=== PATIENT | male | born 1990 | race Caucasian/White ===

== ENCOUNTER 2016-05-14 07:34 | Emergency (ER) | payer MEDICAID ==
[2016-05-14] MEDS ORDERED: IPRATROPIUM/ALBUTEROL 3 ML NEB INH STA (08:45)
[2016-05-14] MEDS ORDERED: DEXAMETHASONE 10 MG/ML VIAL PO STA (08:46)
[2016-05-14] MEDS ORDERED: DEXAMETHASONE 10 MG/ML VIAL ONE (08:50)
[2016-05-14] MEDS ORDERED: IPRATROPIUM/ALBUTEROL 3 ML NEB INH ONE (08:53)
== END 2016-05-14 09:32 | disposition home or self-care (01) ==
DX: H66.003 Acute suppurative otitis media without spontaneous rupture of ear drum, bilateral (principal); J45.21 Mild intermittent asthma with (acute) exacerbation; Z87.891 Personal history of nicotine dependence
CPT/HCPCS: 71020; 94640; 94664; 99283; 99284; J7620

== ENCOUNTER 2016-05-14 20:52 | Emergency (ER) | payer MEDICAID ==
[2016-05-14] MEDS ORDERED: IBUPROFEN 600 MG TABLET PO STA (21:24)
[2016-05-14] MEDS ORDERED: HYDROcod/ACETAM 5/325 MG TABLET PO STA (21:25)
[2016-05-14] MEDS ORDERED: HYDROcod/ACETAM 5/325 MG TABLET ONE (21:26)
[2016-05-14] MEDS ORDERED: IBUPROFEN 600 MG TABLET PO ONE (21:27)
== END 2016-05-14 22:13 | disposition home or self-care (01) ==
DX: M54.5 Low back pain (principal); J45.909 Unspecified asthma, uncomplicated; Z87.891 Personal history of nicotine dependence
CPT/HCPCS: 81001; 99283; A9270

== ENCOUNTER 2016-07-22 14:02 | Emergency (ER) | payer MEDICAID ==
[2016-07-22 15:14] LABS: BILIRUBIN,URINE NEGATIVE (NEGATIVE); PH,URINE 6.5 PH (5.0-7.5)
[2016-07-22 15:22] LABS: UA CHARGE (STRIP ONLY) YES; UR CULTURE IF IND NOT INDICATED
--- NOTE | 2016-07-22 15:22 | ED Physician Documentation ---
PD HPI MHE - Stated complaint Stated Complaint: MHE - Chief complaint Chief Complaint: MHE - Additional information Additional information: 26-year-old male with past medical history of bipolar disorder, not currently on medications, here with suicidal ideation. He feels that his seasonal depression is getting worse, and for the last day he has felt very suicidal. He denies any plan. He has had suicidal ideation in the past without any attempts. He denies auditory and visual hallucinations, and homicidal ideation. Review of Systems Ten Systems: 10 systems reviewed and negative Constitutional: denies: Fever, Chills Cardiac: denies: Chest pain / pressure Respiratory: denies: Dyspnea Psychiatric: reports: Depressed, Suicidal. denies: Homicidal PD PAST MEDICAL HISTORY - Past Medical History Cardiovascular: None Respiratory: Asthma Neuro: None Endocrine/Autoimmune: None GI: None : None HEENT: None Psych: Anxiety, Bipolar disorder Musculoskeletal: None Derm: None - Past Surgical History Past Surgical History: No - Present Medications Home Medications: Ambulatory Orders Medication Instructions Recorded Confirmed No Known Home Medications [No 07/22/16 07/22/16 Known Home Medications] - Allergies Allergies/Adverse Reactions: Allergies Allergy/AdvReac Type Severity Reaction Status Date / Time No Known Drug Allergies Allergy Verified 07/22/16 14:27 - Social History Does the pt smoke?: No Smoking Status: Former smoker Does the pt drink ETOH?: No Does the pt have substance abuse?: Yes - Immunizations Immunizations are current?: Yes Immunizations: TDAP current <10years - POLST Patient has POLST: No PD ED PE NORMAL - Vitals Vital signs reviewed: Yes - General General: Alert and oriented X 3, No acute distress - HEENT HEENT: PERRL - Neck Neck: Supple, no meningeal sign - Cardiac Cardiac: RRR, No murmur - Respiratory Respiratory: Clear bilaterally - Abdomen Abdomen: Normal bowel sounds, Soft, Non tender, Non distended - Derm Derm: Warm and dry - Extremities Extremities: No deformity - Neuro Neuro: Alert and oriented X 3 - Psych Psych: Other (Flat affect, depressed mood, suicidal, not homicidal. Not responding to internal stimuli) Results - Vitals Vitals: Vital Signs - 24 hr 07/22/16 07/22/16 14:24 16:48 Temperature 36.6 C 36.5 C Heart Rate 98 72 Respiratory 16 Rate Blood Pressure 132/75 H 129/82 H O2 Saturation 99 98 Oxygen O2 Source Room air - Labs Labs: Laboratory Tests 07/22/16 07/22/16 07/22/16 14:40 14:40 14:50 Urine Color YELLOW Urine Clarity CLEAR Urine pH 6.5 Ur Specific Normal 1.010 Urine Protein TRACE Urine Glucose (UA) NEGATIVE Urine Ketones NEGATIVE Urine Occult Blood NEGATIVE Urine Nitrite NEGATIVE Urine Bilirubin NEGATIVE Urine Urobilinogen 0.2 (NORMAL) Ur Leukocyte Esterase NEGATIVE Ur Microscopic Review NOT INDICATED Urine Culture Comments NOT INDICATED Salicylates < 6.0 Urine Opiates Screen NEGATIVE Ur Oxycodone Screen NEGATIVE Urine Methadone Screen NEGATIVE Ur Propoxyphene Screen NEGATIVE Acetaminophen < 10 L Ur Barbiturates Screen NEGATIVE Ur Tricyclics Screen NEGATIVE Ur Phencyclidine Scrn NEGATIVE Ur Amphetamine Screen NEGATIVE U Methamphetamines Scrn NEGATIVE U Benzodiazepines Scrn NEGATIVE Urine Cocaine Screen NEGATIVE U Cannabinoids Screen POSITIVE H Ethyl Alcohol < 5.0 PD MEDICAL DECISION MAKING - ED course Complexity details: reviewed results, re-evaluated patient, considered differential, d/w patient ED course: 26 old male with past medical history of bipolar disorder here with suicidal ideation. Differential diagnosis includes but is not limited to substance abuse versus infectious process versus suicidal ideation versus depression. Patient's tox screen is notable only for cannabinoids. There is no social media marketing analyst here upon patient's arrival. He was able to discuss his feelings with the crisis line , and they are going to call him every day until Monday, when he has an emergency appointment scheduled. He told me that he never actually acted on his suicidal feelings, there is feelings that he has that he is able to ignore. He is amenable to discharge and feels comfortable with the plan to talk to the suicide line, And see a counselor first thing Monday morning. He has reassured me that he will not kill himself. He is aware and amenable to discharge at this time with followup. I feel comfortable sending him home, as he does not strike me as an actual suicide risk. This document was made in part using voice recognition software. While efforts are made to proofread this document, sound alike and grammatical errors may occur. Departure - Departure Disposition: Home, Self Care Clinical Impression: Suicidal ideation Depression Qualifiers: Qualified Code(s): F32.9 - Major depressive disorder, single episode, unspecified Condition: Stable Instructions: ED Depression Follow-Up: your, counselor [Other] - Within 3 Days Duke Tyler MD [Primary Care Provider] - Within 1 week Comments: Please be sure to followup at the mental health appointment you may. Return to the ER for any worsening suicidal or homicidal ideation.Your blood pressure was elevated today on check in to the emergency department. This does not mean that you have hypertension, it is a common phenomenon to check into the emergency department and have elevated blood pressure. I recommend that you see your primary care physician within the week to have it rechecked when you're feeling better. Discharge Date/Time: 07/22/16 16:56
[2016-07-22 15:25] LABS: SALICYLATE < 6.0 mg/dL
[2016-07-22 15:37] LABS: ACETAMINOPHEN < 10 ug/mL (10-30)
[2016-07-22 16:49] VITALS: BP 129/82
== END 2016-07-22 16:56 | disposition home or self-care (01) ==
LOC: ED 14:02
DX: F32.9 Major depressive disorder, single episode, unspecified (principal); R45.851 Suicidal ideations; F31.9 Bipolar disorder, unspecified; F41.9 Anxiety disorder, unspecified; R03.0 Elevated blood-pressure reading, without diagnosis of hypertension; Z87.891 Personal history of nicotine dependence
CPT/HCPCS: 36415; 80306; 80307; 80320; 80329; 81001; 81003; 87086; 99283; 99285

== ENCOUNTER 2017-10-29 12:09 | Emergency (ER) | payer MEDICAID ==
--- NOTE | 2017-10-29 12:41 | ED Physician Documentation ---
PD HPI LOWER EXT INJURY - Stated complaint Stated Complaint: L ANKLE INJ - Chief complaint Chief Complaint: Ext Problem - History obtained from History obtained from: Patient - History of Present Illness PD HPI LOW EXT INJURY LOCATION: Left, Ankle Type of injury: Fall (Was coming down stairs while carrying a large box and missed the last step and inverted the left ankle. He heard a pop and a snap. He is able to walk and bear weight. No other injuries. He declines pain medications on initial evaluation.) Timing - onset: Today Review of Systems Constitutional: reports: Reviewed and negative Cardiac: reports: Reviewed and negative Respiratory: reports: Reviewed and negative PD PAST MEDICAL HISTORY - Past Medical History Past Medical History: Yes Cardiovascular: None Respiratory: Asthma Endocrine/Autoimmune: None GI: None : None HEENT: None Psych: Anxiety, Bipolar disorder Musculoskeletal: None Derm: None - Past Surgical History Past Surgical History: No - Present Medications Home Medications: Ambulatory Orders Medication Instructions Recorded Confirmed Albuterol Sulf [Ventolin Hfa 10/29/17 Inhaler] - Allergies Allergies/Adverse Reactions: Allergies Allergy/AdvReac Type Severity Reaction Status Date / Time No Known Drug Allergies Allergy Verified 10/29/17 12:16 - Social History Does the pt smoke?: No Smoking Status: Never smoker Does the pt drink ETOH?: No Does the pt have substance abuse?: Yes Substance Use and Type: Marijuana - Immunizations Immunizations are current?: Yes Immunizations: TDAP current <10years - POLST Patient has POLST: No PD ED PE NORMAL - Vitals Vital signs reviewed: Yes - General General: Alert and oriented X 3, No acute distress - Neck Neck: Supple, no meningeal sign, No bony TTP - Extremities Extremities: Other (Left leg is without proximal fibular tenderness. He is quite tender over the lateral malleolus, not over the medial there is no foot tenderness. There is significant swelling over the lateral malleolus. Normal neurovascular function in the foot.) - Neuro Neuro: Alert and oriented X 3, Normal speech Results - Vitals Vitals: Vital Signs - 24 hr 10/29/17 12:13 Temperature 37.5 C Heart Rate 68 Respiratory 20 Rate Blood Pressure 137/75 H O2 Saturation 97 Oxygen O2 Source Room air - Rads (name of study) 3v L ankle Radiology: EMP read contemporaneously (STS no frx) PD MEDICAL DECISION MAKING - Sepsis Event Vital Signs: Vital Signs - 24 hr 10/29/17 12:13 Temperature 37.5 C Heart Rate 68 Respiratory 20 Rate Blood Pressure 137/75 H O2 Saturation 97 Oxygen O2 Source Room air Departure - Departure Disposition: 01 Home, Self Care Clinical Impression: Left ankle sprain Qualifiers: Encounter type: initial encounter Involved ligament of ankle: anterior talofibular ligament Qualified Code(s): S93.492A - Sprain of other ligament of left ankle, initial encounter Condition: Good Instructions: ED Sprain Ankle W X Ray Comments: Recheck with your doctor in a week, return if worse. Your blood pressure was elevated today on check into the emergency department. This does not mean that you have hypertension, it is a common phenomenon to come to the emergency department and have elevated blood pressure. I recommend that you see your primary care physician within the week to have it rechecked when you are feeling better.
--- NOTE | 2017-10-29 13:09 | XRAY Report ---
Procedure Date: 10/29/2017 Accession Number: [id number] / [id number] Procedure: XR - Ankle 3 View LT CPT Code: FULL RESULT: EXAM: LEFT ANKLE RADIOGRAPHY EXAM DATE: 10/29/2017 12:58 PM. CLINICAL HISTORY: Pain after injury (missed the last step coming down stairs carrying a large box) COMPARISON: None. TECHNIQUE: 3 views. FINDINGS: Bones: Normal. No fractures or bone lesions. Joints: Normal. No effusion. No subluxations. The ankle mortise is normally aligned. Soft Tissues: Mild lateral soft tissue swelling. IMPRESSION: No acute osseous abnormality. RADIA
[2017-10-29 13:21] VITALS: BP 133/81
== END 2017-10-29 13:20 | disposition home or self-care (01) ==
LOC: ED 12:09
DX: S93.492A Sprain of other ligament of left ankle, initial encounter (principal); W10.9XXA Fall (on) (from) unspecified stairs and steps, initial encounter; X50.1XXA Overexertion from prolonged static or awkward postures, initial encounter; Y93.01 Activity, walking, marching and hiking; R03.0 Elevated blood-pressure reading, without diagnosis of hypertension
CPT/HCPCS: 99283

== ENCOUNTER 2019-01-27 01:59 | Emergency (ER) | payer MEDICAID ==
[2019-01-27] MEDS ORDERED: LORazepam 0.5 MG TABLET PO STA (02:18)
--- NOTE | 2019-01-27 02:18 | ED Physician Documentation ---
History of Present Illness - Stated complaint Stated Complaint: ANXIETY - Chief complaint Chief Complaint: MHE - History obtained from History obtained from: Patient - History of Present Illness Timing: How many days ago (4) Improved by: no ameliorating factors Worsened by: no specific inciting nor exacerbating factors - Additonal information Additional information: c/o generalized anxiety resulting in insomnia x 4 days. He was recently seen by PMD for this and was offered rx for antidepressant (can't recall which one, but thinks it might have been Zoloft); patient says he declined this rx because he had been on zoloft in the past and had distressing withdrawal symptoms when it was discontinued. He says PMD is in process of referring patient to a psychiatrist, but patient presents at this time due to feeling he cannot handle the anxiety any longer. He denies SI/HI, denies AH/VH. Review of Systems Neurologic: reports: Reviewed and negative Psychiatric: reports: Anxiety, Insomnia. denies: Depressed, Suicidal, Homicidal, Hallucinations, Delusions PD PAST MEDICAL HISTORY - Past Medical History Past Medical History: Yes Cardiovascular: None Respiratory: Asthma Endocrine/Autoimmune: None GI: None : None HEENT: None Psych: Anxiety, Bipolar disorder Musculoskeletal: None Derm: None - Past Surgical History Past Surgical History: No - Present Medications Home Medications: Ambulatory Orders Medication Instructions Recorded Confirmed Albuterol Sulf [Ventolin Hfa 10/29/17 Inhaler] LORazepam [Lorazepam] 0.5 - 1 mg PO TID PRN #20 tablet 01/27/19 - Allergies Allergies/Adverse Reactions: Allergies Allergy/AdvReac Type Severity Reaction Status Date / Time No Known Drug Allergies Allergy Verified 01/27/19 02:05 - Social History Does the pt smoke?: No Smoking Status: Never smoker Does the pt drink ETOH?: No Does the pt have substance abuse?: No - Immunizations Immunizations are current?: Yes Immunizations: TDAP current <10years - POLST Patient has POLST: No PD ED PE NORMAL - Vitals Vital signs reviewed: Yes - General General: Alert and oriented X 3, No acute distress, Well developed/nourished - HEENT HEENT: PERRL, EOMI - Cardiac Cardiac: RRR, No murmur - Respiratory Respiratory: No respiratory distress, Clear bilaterally - Neuro Neuro: Alert and oriented X 3 - Psych Psych: Normal mood, Normal affect Results - Vitals Vitals: Vital Signs - 24 hr 01/27/19 01/27/19 02:01 02:37 Temperature 36.4 C L 36.5 C Heart Rate 80 72 Respiratory 18 18 Rate Blood Pressure 143/100 H 118/72 O2 Saturation 98 100 Oxygen O2 Source Room air PD MEDICAL DECISION MAKING - ED course Complexity details: reviewed old records, considered differential, d/w patient ED course: patient is pleasant and cooperative, requesting medication for anxiety for short-term until he can follow up with his PMD or, ideally, be seen by psychiatry (he says he knows the referral process will likely take weeks). He does not request any specific medication, dose, nor amount/length of course of rx. We discussed options and my recommendation is lorazepam, which he says he has had in the past with good effect (anxiety control). Departure - Departure Disposition: 01 Home, Self Care Clinical Impression: Anxiety Condition: Good Instructions: ED Panic Attack Follow-Up: FRIDA BHATT MD [Primary Care Provider] - Prescriptions: LORazepam [Lorazepam] 0.5 - 1 mg PO TID PRN #20 tablet PRN Reason: Anxiety Discharge Date/Time: 01/27/19 02:37
[2019-01-27 02:38] VITALS: BP 118/72
== END 2019-01-27 02:37 | disposition home or self-care (01) ==
LOC: ED 01:59
DX: F41.9 Anxiety disorder, unspecified (principal)
CPT/HCPCS: 99282; 99283; A9270

== ENCOUNTER 2019-02-19 13:59 | Emergency (ER) | payer MEDICAID ==
[2019-02-19 14:05] VITALS: BP 150/103
--- NOTE | 2019-02-19 15:45 | ED Physician Documentation ---
History of Present Illness - Stated complaint Stated Complaint: MOUTH PX - Chief complaint Chief Complaint: Heent - Additonal information Additional information: I did not see this patient. I signed up to see him as he was being called back from the waiting room, but he was not in the waiting room and appeared to have eloped prior to being seen. PD PAST MEDICAL HISTORY - Past Medical History Cardiovascular: None Respiratory: Asthma Endocrine/Autoimmune: None GI: None : None HEENT: None Psych: Anxiety, Bipolar disorder Musculoskeletal: None Derm: None - Past Surgical History Past Surgical History: No - Present Medications Home Medications: Ambulatory Orders Medication Instructions Recorded Confirmed Albuterol Sulf [Ventolin Hfa 10/29/17 Inhaler] LORazepam [Lorazepam] 0.5 - 1 mg PO TID PRN #20 tablet 01/27/19 - Allergies Allergies/Adverse Reactions: Allergies Allergy/AdvReac Type Severity Reaction Status Date / Time No Known Drug Allergies Allergy Verified 01/27/19 02:05 - Social History Does the pt smoke?: No Smoking Status: Never smoker Does the pt drink ETOH?: No Does the pt have substance abuse?: No - Immunizations Immunizations are current?: Yes Immunizations: TDAP current <10years - POLST Patient has POLST: No Results - Vitals Vitals: Oxygen O2 Source Room air Departure - Departure Disposition: ED Elope Discharge Date/Time: 02/19/19 17:14
== END 2019-02-19 17:14 | disposition left against medical advice (07) ==
LOC: ED 13:59
DX: Z53.21 Procedure and treatment not carried out due to patient leaving prior to being seen by health care provider (principal)

== ENCOUNTER 2019-05-15 11:03 | Emergency (ER) | payer SELFPAY ==
[2019-05-15 11:26] VITALS: BP 134/88
[2019-05-15 11:50] LABS: RAPID STREP SCREEN Negative (Negative)
--- NOTE | 2019-05-15 12:06 | ED Physician Documentation ---
PD HPI HEENT - Stated complaint Stated Complaint: FEVER/ SORE THROAT - Chief complaint Chief Complaint: Heent - History obtained from History obtained from: Patient (10 days of waxing and waning sore throat, left worse than right associated with fevers. No cough or runny nose. He has a history of recurrent tonsillitis and peritonsillar abscesses. No recent travel) Review of Systems Ten Systems: 10 systems reviewed and negative Constitutional: reports: Fever, Chills, Fatigue Ears: reports: Reviewed and negative Nose: denies: Rhinorrhea / runny nose, Congestion Throat: reports: Sore throat Respiratory: denies: Dyspnea, Cough PD PAST MEDICAL HISTORY - Past Medical History Cardiovascular: None Respiratory: Asthma Endocrine/Autoimmune: None GI: None : None HEENT: None Psych: Anxiety, Bipolar disorder Musculoskeletal: None Derm: None - Past Surgical History Past Surgical History: No - Present Medications Home Medications: Ambulatory Orders Medication Instructions Recorded Confirmed Albuterol Sulf [Ventolin Hfa 10/29/17 Inhaler] LORazepam [Lorazepam] 0.5 - 1 mg PO TID PRN #20 tablet 01/27/19 Penicillin V Potassium 500 mg PO Q6HR #40 tablet 05/15/19 - Allergies Allergies/Adverse Reactions: Allergies Allergy/AdvReac Type Severity Reaction Status Date / Time No Known Drug Allergies Allergy Verified 05/15/19 11:25 - Social History Does the pt smoke?: No Smoking Status: Never smoker Does the pt drink ETOH?: No Does the pt have substance abuse?: No - Immunizations Immunizations are current?: Yes Immunizations: TDAP current <10years - POLST Patient has POLST: No PD ED PE NORMAL - Vitals Vital signs reviewed: Yes - General General: Alert and oriented X 3, No acute distress - HEENT HEENT: Other (Tonsillitis, left larger than right but no uvular deviation. No obvious abscess at this juncture.) - Neck Neck: Supple, no meningeal sign, No bony TTP - Neuro Neuro: Alert and oriented X 3, Normal speech Results - Vitals Vitals: Vital Signs - 24 hr 05/15/19 11:22 Temperature 36.9 C Heart Rate 90 Respiratory 17 Rate Blood Pressure 134/88 H O2 Saturation 96 Oxygen O2 Source Room air - Labs Labs: Laboratory Tests 05/15/19 11:28 Group A Strep Rapid Negative PD MEDICAL DECISION MAKING - ED course ED course: 3 out of 4 Centor criteria with typical tonsillitis. Departure - Departure Disposition: 01 Home, Self Care Clinical Impression: Tonsillitis Condition: Good Record reviewed to determine appropriate education?: Yes Instructions: ED Peritonsillar Infec Abx No I andD Prescriptions: Penicillin V Potassium 500 mg PO Q6HR #40 tablet Comments: [facility] [place] Call your doctor to arrange a follow-up appointment, make the next available appointment. In the interim, return anytime if worse or if new symptoms develop. Forms: Activity restrictions
== END 2019-05-15 12:21 | disposition home or self-care (01) ==
LOC: ED 11:03
DX: J03.90 Acute tonsillitis, unspecified (principal)
CPT/HCPCS: 87070; 87430; 99283

== ENCOUNTER 2021-02-13 11:32 | Emergency (ER) | payer MEDICAID ==
[2021-02-13 11:48] VITALS: BP 136/74
--- NOTE | 2021-02-13 12:06 | ED Physician Documentation ---
History of Present Illness - Stated complaint Stated Complaint: N/V/D - Chief complaint Chief Complaint: General - Additonal information Additional information: 30-year-old male presents emergency department requesting a note to return to [facility]. He began having vomiting and diarrhea after eating fish sticks that were left out on the counter for too long. He reports that on Monday and morning afternoon he began having uncontrollable vomiting and diarrhea. Her that resolved by night and over the last 36 hours he is eating and drinking well with no complaints. No bloody output no fevers. No complaints of abdominal pain. He works as a manager community development at [employer] and they require a note if you have missed 3 or more days of work Denies any pertinent past medical history. Takes no prescribed medications. Review of Systems Constitutional: denies: Fever, Chills Eyes: reports: Reviewed and negative Ears: reports: Reviewed and negative Nose: reports: Reviewed and negative Throat: reports: Reviewed and negative Cardiac: reports: Reviewed and negative Respiratory: reports: Reviewed and negative GI: reports: Nausea, Vomiting, Diarrhea. denies: Abdominal Pain : reports: Reviewed and negative Skin: reports: Reviewed and negative Musculoskeletal: reports: Reviewed and negative PD PAST MEDICAL HISTORY - Past Medical History Cardiovascular: None Respiratory: Asthma Endocrine/Autoimmune: None GI: None : None HEENT: None Psych: Anxiety, Bipolar disorder Musculoskeletal: None Derm: None - Past Surgical History Past Surgical History: No - Present Medications Home Medications: Ambulatory Orders Medication Instructions Recorded Confirmed Albuterol Sulf [Ventolin Hfa 10/29/17 Inhaler] LORazepam [Lorazepam] 0.5 - 1 mg PO TID PRN #20 tablet 01/27/19 Penicillin V Potassium 500 mg PO Q6HR #40 tablet 05/15/19 - Allergies Allergies/Adverse Reactions: Allergies Allergy/AdvReac Type Severity Reaction Status Date / Time No Known Drug Allergies Allergy Verified 02/13/21 11:48 - Social History Does the pt smoke?: No Smoking Status: Never smoker Does the pt drink ETOH?: No Does the pt have substance abuse?: No - Immunizations Immunizations are current?: Yes Immunizations: TDAP current <10years - POLST Patient has POLST: No PD ED PE NORMAL - General General: Alert and oriented X 3, No acute distress - HEENT HEENT: PERRL - Neck Neck: Supple, no meningeal sign - Cardiac Cardiac: RRR, No murmur - Respiratory Respiratory: Clear bilaterally - Abdomen Abdomen: Normal bowel sounds, Soft, Non tender, Non distended - Back Back: No CVA TTP, No spinal TTP - Derm Derm: Warm and dry - Extremities Extremities: No deformity - Neuro Neuro: Alert and oriented X 3 Eye Opening: Spontaneous Motor: Obeys Commands Results - Vitals Vitals: Vital Signs - 24 hr 02/13/21 11:45 Temperature 36.3 C L Heart Rate 87 Respiratory 15 Rate Blood Pressure 136/74 H O2 Saturation 99 Oxygen O2 Source Room air PD MEDICAL DECISION MAKING - ED course Complexity details: considered differential, d/w patient ED course: 30-year-old male presents emergency department requesting a note to return to work. He unfortunately had vomiting and diarrhea which required him to miss 3 days of work. None now for 36 hours. Clinically his exam is benign with no vital sign abnormality or tenderness on abdominal exam. No vomiting or diarrhea for 36 hours. Patient is medically cleared to return for work a note was provided. Departure - Departure Disposition: 01 Home, Self Care Clinical Impression: Encounter to obtain excuse from work, Vomiting and diarrhea Condition: Stable Record reviewed to determine appropriate education?: Yes Comments: Paul it has been more than 24 hours since she had vomiting and diarrhea. He has not had any fevers. You are medically cleared to return to work.
== END 2021-02-13 12:31 | disposition home or self-care (01) ==
LOC: ED 11:32
DX: R11.10 Vomiting, unspecified (principal); R19.7 Diarrhea, unspecified; F41.9 Anxiety disorder, unspecified; F31.9 Bipolar disorder, unspecified
CPT/HCPCS: 99282

== ENCOUNTER 2021-03-03 17:03 | Emergency (ER) | payer MEDICAID ==
[2021-03-03] MEDS ORDERED: IBUPROFEN 800 MG TABLET PO STA (17:39)
[2021-03-03] MEDS ORDERED: methocarbamoL 500 MG TABLET PO STA (17:39)
--- NOTE | 2021-03-03 18:00 | ED Physician Documentation ---
PD HPI BACK PAIN - Stated complaint Stated Complaint: FALL, BACK PX - Chief complaint Chief Complaint: Trauma Ch/Bk - History obtained from History obtained from: Patient - History of Present Illness Timing - onset: Today Timing - duration: Minutes (45) Pain level max: 7 Pain level now: 6 Location: Lower, Right, Left Quality: Pain, Spasm Associated symptoms: No: Fever, Weakness, Numbness, Incontinent of urine, Unable to urinate, Hematuria, Incontinent of stool Improves with: Rest Worsened by: Movement Contributing factors: Trauma. No: Lifting, Twisting, Anticoagulated, Cancer, IVDA, Out of meds Similar symptoms before: Has not had sx before Recently seen: Not recently seen - Additional information Additional information: Patient is a 30-year-old male who states that he was walking across a deck today which was slippery and wet when he fell backwards landing flat on his back. Complains of back pain that is worse with movement and better with rest. Occurred about 45 minutes prior to arrival. Has not taken anything for pain. No loss of bowel or bladder control. No numbness or tingling. No head injury. No neck pain. Review of Systems Constitutional: denies: Fever, Chills Respiratory: denies: Cough GI: denies: Nausea, Vomiting, Diarrhea : denies: Dysuria, Incontinent Skin: denies: Rash Musculoskeletal: denies: Neck pain Neurologic: denies: Focal weakness, Numbness, Headache PD PAST MEDICAL HISTORY - Past Medical History Cardiovascular: None Respiratory: Asthma Endocrine/Autoimmune: None GI: None : None HEENT: None Psych: Anxiety, Bipolar disorder Musculoskeletal: None Derm: None - Past Surgical History Past Surgical History: No - Present Medications Home Medications: Ambulatory Orders Medication Instructions Recorded Confirmed Cyclobenzaprine [Flexeril] 10 mg PO TID PRN #20 tablet 03/03/21 HYDROcod/ACETAM 5/325 [Drewsey 5/325] 1 - 2 ea PO Q6H PRN #14 tablet 03/03/21 Ibuprofen [Motrin] 800 mg PO Q8H PRN #30 tablet 03/03/21 - Allergies Allergies/Adverse Reactions: Allergies Allergy/AdvReac Type Severity Reaction Status Date / Time No Known Drug Allergies Allergy Verified 03/03/21 17:10 - Social History Does the pt smoke?: No Smoking Status: Never smoker Does the pt drink ETOH?: No Does the pt have substance abuse?: No - Immunizations Immunizations are current?: Yes Immunizations: TDAP current <10years - POLST Patient has POLST: No PD ED PE NORMAL - Vitals Vital signs reviewed: Yes - General General: Alert and oriented X 3, No acute distress, Well developed/nourished - HEENT HEENT: Atraumatic, Moist mucous membranes - Neck Neck: Supple, no meningeal sign, No bony TTP - Cardiac Cardiac: RRR - Respiratory Respiratory: No respiratory distress, Clear bilaterally - Abdomen Abdomen: Normal bowel sounds, Soft, Non tender, Non distended - Back Back: No spinal TTP (No midline tenderness to palpation or percussion. No step- off or deformity. Paraspinal spasm present bilateral lower lumbar.) - Derm Derm: Warm and dry - Extremities Extremities: No edema - Neuro Neuro: Alert and oriented X 3, No motor deficit, No sensory deficit, Other (Normal bilateral lower extremity patellar and ankle jerk reflexes. Normal great toe extension bilaterally. no saddle anesthesia) - Psych Psych: Normal mood, Normal affect Results - Vitals Vitals: Vital Signs - 24 hr 03/03/21 03/03/21 17:08 19:20 Temperature 36.2 C L Heart Rate 101 H 85 Respiratory 16 16 Rate Blood Pressure 146/95 H 140/86 H O2 Saturation 96 97 Oxygen O2 Source Room air - Rads (name of study) Lumbar spine x-ray Radiology: Final report received, EMP read contemporaneously, See rad report (No acute abnormality) PD MEDICAL DECISION MAKING - ED course Complexity details: reviewed results, re-evaluated patient, considered differential (No cauda equina, no spinal epidural abscess, no fracture, no aortic dissection or evidence of aneursym rupture), d/w patient ED course: 30-year-old male presents to the emergency department after a ground-level fall today. No acute findings on x-ray. Appears to be muscular spasm. Will place on pain medication muscle relaxants for home. Patient counseled regarding signs and symptoms for which I believe and urgent re-evaluation would be necessary. Patient with good understanding of and agreement to plan and is comfortable going home at this time This document was made in part using voice recognition software. While efforts are made to proofread this document, sound alike and grammatical errors may occur. Departure - Departure Disposition: Home, Self Care Clinical Impression: Back muscle spasm Condition: Good Instructions: ED Spasm Back No Trauma Follow-Up: your,doctor in 1 week [Other] Prescriptions: Cyclobenzaprine [Flexeril] 10 mg PO TID PRN #20 tablet PRN Reason: Spasms Ibuprofen [Motrin] 800 mg PO Q8H PRN #30 tablet PRN Reason: PAIN &/OR FEVER HYDROcod/ACETAM 5/325 [Drewsey 5/325] 1 - 2 ea PO Q6H PRN #14 tablet PRN Reason: Pain Comments: Please follow-up with your doctor for further care. Your prescriptions were sent to [facility] in [place]. Your x-ray does not show any acute abnormalities. Continue to gently stretch your back. I am prescribing a short course of narcotic pain medication for you. These are potentially dangerous and addictive medications that should be used carefully. These medications may constipate you. Take an [id number] stool softener (docusate) twice daily with plenty of water while taking these medications. If you go 24 hours without a bowel movement, take [id number] miralax, per package instructions. Do not drink or drive while taking these medications. If you received narcotic or sedating medications while in the emergency department, do not drive for 24 hours. Store this medication in a safe, secure place and out of reach of children. It is a violation of federal law to give or sell this medication to another person or to use in a manner other than prescribed. The ED will not refill narcotic prescriptions, including prescriptions lost or stolen. To dispose of unwanted medications: 1. [facility] at [address] in [place] has a medication drop box. They accept prescription medications (in pill form) Monday through Monday 9:00 a.m. to 5:00 p.m. 2. [facility] [employer] accepts prescription medications (in pill form only) for disposal year round. Call for more information. 3. Contact the [facility] for the next [facility] sponsored prescription drug collection event. , [phone], or [phone]; Discharge Date/Time: 03/03/21:21
--- NOTE | 2021-03-03 18:07 | XRAY Report ---
PROCEDURE: Lumbar Spine 2 View INDICATIONS: fall, back pain TECHNIQUE: 2 views of the lumbar spine were acquired. COMPARISON: None. FINDINGS: Bones: 5 [id number] vertebrae are present. There is normal bony alignment. No vertebral body compression fractures. No suspicious bony lesions. Soft tissues: Overlying bowel gas pattern is normal. No suspicious soft tissue calcifications. IMPRESSION: Lumbar spine without acute fracture or traumatic malalignment. Reviewed by: Vaibhav Diaz MD on 03/03/2021 6:06 PM [facility] Approved by: Vaibhav Diaz MD on 03/03/2021 6:06 PM [facility] Station ID: [id number]
[2021-03-03 19:21] VITALS: BP 140/86
== END 2021-03-03 19:21 | disposition home or self-care (01) ==
LOC: ED 17:03
DX: M62.830 Muscle spasm of back (principal); M54.50 Low back pain, unspecified; W01.0XXA Fall on same level from slipping, tripping and stumbling without subsequent striking against object, initial encounter; Y93.01 Activity, walking, marching and hiking; Y92.008 Other place in unspecified non-institutional (private) residence as the place of occurrence of the external cause
CPT/HCPCS: 72100; 99283; A9270

== ENCOUNTER 2021-03-16 10:08 | Emergency (ER) | payer MEDICAID ==
[2021-03-16 10:25] VITALS: BP 136/84
--- NOTE | 2021-03-16 11:03 | ED Physician Documentation ---
History of Present Illness - Stated complaint Stated Complaint: WORK CLEARANCE,BACK INJURY - Chief complaint Chief Complaint: Back Pain - History obtained from History obtained from: Patient - History of Present Illness Timing: How many weeks ago (2) - Additonal information Additional information: 30-year-old male sprained his back slipped on a deck 2 weeks ago went back to work 3 days later and when lifting a bag of garbage he had acute spasm in his back bring him to his knees. He feels that he has recovered completely he is able to stand up and bend over and touch his toes and feels he is ready to go back to work. Review of Systems Constitutional: denies: Fever Eyes: denies: Decreased vision Ears: denies: Ear pain Nose: denies: Congestion Throat: denies: Sore throat Respiratory: denies: Cough GI: denies: Abdominal Pain, Nausea, Vomiting, Constipation, Diarrhea : denies: Dysuria, Frequency Skin: denies: Rash Musculoskeletal: reports: Back pain (resolved). denies: Neck pain, Extremity pain PD PAST MEDICAL HISTORY - Past Medical History Past Medical History: Yes Cardiovascular: None Respiratory: Asthma Endocrine/Autoimmune: None GI: None : None HEENT: None Psych: Anxiety, Bipolar disorder Musculoskeletal: None Derm: None - Past Surgical History Past Surgical History: No - Present Medications Home Medications: Ambulatory Orders Medication Instructions Recorded Confirmed Cyclobenzaprine [Flexeril] 10 mg PO TID PRN #20 tablet 03/03/21 HYDROcod/ACETAM 5/325 [Eagle 5/325] 1 - 2 ea PO Q6H PRN #14 tablet 03/03/21 Ibuprofen [Motrin] 800 mg PO Q8H PRN #30 tablet 03/03/21 - Allergies Allergies/Adverse Reactions: Allergies Allergy/AdvReac Type Severity Reaction Status Date / Time No Known Drug Allergies Allergy Verified 03/03/21 17:10 - Social History Does the pt smoke?: No Smoking Status: Never smoker Does the pt drink ETOH?: No Does the pt have substance abuse?: No - Immunizations Immunizations are current?: Yes Immunizations: TDAP current <10years - POLST Patient has POLST: No PD ED PE NORMAL - Vitals Vital signs reviewed: Yes (hypertensive mild ) - General General: Alert and oriented X 3, No acute distress, Well developed/nourished - HEENT HEENT: Atraumatic, PERRL, EOMI - Neck Neck: Supple, no meningeal sign, No bony TTP - Respiratory Respiratory: No respiratory distress - Back Back: No CVA TTP, No spinal TTP - Derm Derm: Normal color, Warm and dry, No rash - Extremities Extremities: No deformity, No edema - Neuro Neuro: Alert and oriented X 3, scientific aide 2-12 intact, No motor deficit, No sensory deficit, Normal speech Eye Opening: Spontaneous Motor: Obeys Commands Verbal: Oriented GCS Score: 15 - Psych Psych: Normal mood, Normal affect Results - Vitals Vitals: Vital Signs - 24 hr 03/16/21 10:22 Temperature 36.6 C Heart Rate 88 Respiratory 15 Rate Blood Pressure 136/84 H O2 Saturation 100 Oxygen O2 Source Room air PD MEDICAL DECISION MAKING - ED course Complexity details: considered differential, d/w patient ED course: 30-year-old male strained his back 2 weeks ago appears to have recovered and he wants a note to go back to work I believe the patient will be able to go back to work unrestricted. Departure - Departure Disposition: 01 Home, Self Care Clinical Impression: Encounter for pre-employment low back evaluation screening Condition: Stable Instructions: ED Low Back Pain Injury Follow-Up: [facility] [Provider Group] Comments: Paul it looks like your back injury has resolved. Sudden jarring injuries to your back will sometimes have a delay in onset of symptoms and may take 1 to 2 weeks to recover. The recommendation is ice and stretch stretch before working and maintain hydration. Forms: Activity restrictions
== END 2021-03-16 11:08 | disposition home or self-care (01) ==
LOC: ED 10:08
DX: Z02.89 Encounter for other administrative examinations (principal); S39.012D Strain of muscle, fascia and tendon of lower back, subsequent encounter; W01.0XXD Fall on same level from slipping, tripping and stumbling without subsequent striking against object, subsequent encounter
CPT/HCPCS: 1040M; 99281; 99282

== ENCOUNTER 2021-08-16 09:32 | Emergency (ER) | payer MEDICAID, OTHER ==
[2021-08-16 09:45] VITALS: BP 101/52
[2021-08-16] MEDS ORDERED: CHERRY SYRUP 10 ML UDC PO ONE (10:07)
[2021-08-16] MEDS ORDERED: DEXAMETHASONE 10 MG/ML VIAL PO STA (10:07)
--- NOTE | 2021-08-16 10:11 | ED Physician Documentation ---
PD HPI HEENT - Stated complaint Stated Complaint: FACE LUMP/EYE PX - Chief complaint Chief Complaint: Heent - History obtained from History obtained from: Patient - History of Present Illness Timing - onset: How many days ago (4) Timing - duration: Days (4) Timing - details: Gradual onset, Still present Location: Other (left pre-auricular) Improves: Nothing Worsens: Other (palpation) Associated symptoms: Swollen nodes, Facial swelling, Other (eye irrirtation). No: Fever, Congestion, Rhinorrhea, Trismus, Unable to swallow, Headache, Cough Similar symptoms before: Diagnosis (ingrown hair) Recently seen: Not recently seen - Additional information Additional information: 31-year-old male has developed a swelling in front of his left ear that was tender and erythematous she felt that he had an ingrown hair there and this started about 4 days ago. He has begun to develop some irritation to his left eye with some swelling to the eyelid and erythema. He has had a number of ENT infections previously and has had to be in to see the ENT in [place] 3 times previously for I&D of his tonsils. Review of Systems Constitutional: denies: Fever Eyes: reports: Irritation. denies: Loss of vision, Decreased vision, Photophobia, Discharge Ears: denies: Ear pain Nose: denies: Rhinorrhea / runny nose, Congestion Throat: denies: Sore throat Respiratory: denies: Cough GI: denies: Vomiting Musculoskeletal: denies: Neck pain, Back pain, Extremity pain Neurologic: denies: Generalized weakness, Focal weakness, Numbness, Headache, Head injury, LOC PD PAST MEDICAL HISTORY - Past Medical History Past Medical History: Yes Cardiovascular: None Respiratory: Asthma Neuro: None Endocrine/Autoimmune: None GI: None : None HEENT: None Psych: Anxiety Musculoskeletal: None Derm: None - Past Surgical History Past Surgical History: No - Present Medications Home Medications: Ambulatory Orders Medication Instructions Recorded Confirmed Amox/Clav 875/125 [Augmentin] 1 each PO Q12H #20 tablet 08/16/21 - Allergies Allergies/Adverse Reactions: Allergies Allergy/AdvReac Type Severity Reaction Status Date / Time No Known Drug Allergies Allergy Verified 08/16/21 09:41 - Social History Does the pt smoke?: No Smoking Status: Never smoker Does the pt drink ETOH?: No Does the pt have substance abuse?: Yes Substance Use and Type: Marijuana - Immunizations Immunizations are current?: Yes Immunizations: TDAP current <10years - POLST Patient has POLST: No PD ED PE NORMAL - Vitals Vital signs reviewed: Yes (Normal) - General General: Alert and oriented X 3, Well developed/nourished, Other (31-year-old male with scleral injection to the left eye. ) - HEENT HEENT: Atraumatic, PERRL, EOMI, Other (Left TM is with minimal erythema the right TM is flush but with retained landmarks there is a 1 cm by half centimeter mass that is firm palpable in the preauricular auricular area consistent with an enlarged lymph node. The area is tender there is no fluctuance.) - Neck Neck: Supple, no meningeal sign, No bony TTP - Respiratory Respiratory: No respiratory distress - Derm Derm: Normal color, Warm and dry, No rash - Extremities Extremities: No deformity, No edema - Neuro Neuro: Alert and oriented X 3, interactive developer 2-12 intact, No motor deficit, No sensory deficit, Normal speech Eye Opening: Spontaneous Motor: Obeys Commands Verbal: Oriented GCS Score: 15 - Psych Psych: Normal mood, Normal affect Results - Vitals Vitals: Vital Signs - 24 hr 08/16/21 09:41 Temperature 36.8 C Heart Rate 95 Respiratory 16 Rate Blood Pressure 101/52 L O2 Saturation 96 Oxygen O2 Source Room air PD MEDICAL DECISION MAKING - ED course Complexity details: reviewed old records, reviewed results, re-evaluated patient, considered differential, d/w patient ED course: 31-year-old Fay Garnica with what appears to be a swollen preauricular lymph node has had a number of ENT infections previously. This does not look like it matches any specific process. I treated the patient here in the emergency department with dexamethasone to help shrink the lymph node and Aug mentin. I have asked patient to follow-up with ENT if he has if he has progression of his symptoms despite this treatment Departure - Departure Disposition: 01 Home, Self Care Clinical Impression: Acute lymphangitis of external cheek Condition: Stable Instructions: ED Lymphangitis Follow-Up: [facility] [Provider Group] [facility] [place] [Provider Group] Prescriptions: Amox/Clav 875/125 [Augmentin] 1 each PO Q12H #20 tablet Comments: Paul today it looks like you have an infection in the lymph node in front of your ear. This is a common place to get a lymph node inflamed in this year area usually drains the eye. I am expecting with the treatment we provided you today to have an improvement day by day. If you have a worsening of your condition despite the treatment we have started here a prompt follow-up with ear nose and throat is recommended. I have E scribed some Augmentin to [facility] in [place].
--- OUTSIDE RECORDS SUMMARY | 2021-08-16 10:12 | EXTERNAL MEDICAL SUMMARY RPT | Continuity of Care Document ---
:1990 Author Organization [facility] Address [address] [place] [address] Phone Care Team Providers Name Role Phone PA-C Unavailable Unavailable WASHER BLANKET Unavailable Unavailable Allergies No information. Encounters No information. Medications date description facility 20210701 penicillin v potassium All 20210701 penicillin v potassium All Problems date description facility 20210701 Total score? All 20210701 Tonsillitis All 20210701 Tobacco use and exposure All 20210701 Tobacco smoking status NHIS All 20210701 Alcohol use All 20210701 Acute tonsillitis, unspecified All 20210701 Never smoker All 20210701 Details of drug misuse behavior All Procedures date description facility 20210701 Med Administration (PO-SL-IN-MA) All 20210701 Dexamethasone Sodium Phosphate Inj 10mg /1mL All 20210701 Med Administration (PO-SL-IN-MA) All 20210701 Dexamethasone Sodium Phosphate Inj 10mg /1mL All Results No information. Vital Signs date measurement value source 20210701 weight_standard 195 lb 20210701 weight_metric 88.45 kg 20210701 temperature_standard 98.2 F 20210701 temperature_metric 36.78 C 20210701 respiration_rate 16 /min 20210701 height_standard 71 in 20210701 height_metric 180.34 cm 20210701 heart_rate 80 /min 20210701 BP_systolic 139 mm[Hg] 20210701 BP_diastolic 89 mm[Hg] 20210701 BMI 27.30 kg/m2 20210701 weight_standard 195 lb 20210701 weight_metric 88.45 kg 20210701 temperature_standard 98.2 F 20210701 temperature_metric 36.78 C 20210701 respiration_rate 16 /min 20210701 height_standard 71 in 20210701 height_metric 180.34 cm 20210701 heart_rate 80 /min 20210701 BP_systolic 139 mm[Hg] 20210701 BP_diastolic 89 mm[Hg] 20210701 BMI 27.30 kg/m2
== END 2021-08-16 10:25 | disposition home or self-care (01) ==
LOC: ED 09:32
DX: I89.1 Lymphangitis (principal)
CPT/HCPCS: 99282; 99283; A9270

== ENCOUNTER 2023-06-20 12:31 | Emergency (ER) | payer MEDICAID ==
[2023-06-20 12:47] VITALS: BP 140/84; O2SAT 98
--- NOTE | 2023-06-20 13:18 | ED Physician Documentation ---
History of Present Illness - Stated complaint Stated Complaint: MED REFIL - Chief complaint Chief Complaint: General - Additonal information Additional information: 33-year-old gentleman with longstanding mood disorder on sertraline 100 twice daily. He changed primary care and is unable to get refills. Took his last pill today. Here for medication refill no SI or HI. Calm cooperative pleasant no other concerns. Review of Systems Neurologic: reports: Reviewed and negative Psychiatric: denies: Depressed, Suicidal, Homicidal, Hallucinations, Delusions, Anxiety, Insomnia PD PAST MEDICAL HISTORY - Past Medical History Past Medical History: Yes Cardiovascular: None Respiratory: Asthma Neuro: None Endocrine/Autoimmune: None GI: None : None HEENT: None Psych: Anxiety Musculoskeletal: None Derm: None - Past Surgical History Past Surgical History: No - Present Medications Home Medications: Ambulatory Orders Medication Instructions Recorded Confirmed Amox/Clav 875/125 [Augmentin] 1 each PO Q12H #20 tablet 08/16/21 Sertraline [Zoloft] 100 mg PO BID #60 tablet 06/20/23 - Allergies Allergies/Adverse Reactions: Allergies Allergy/AdvReac Type Severity Reaction Status Date / Time No Known Drug Allergies Allergy Verified 06/20/23 12:41 - Social History Does the pt smoke?: No Smoking Status: Never smoker Does the pt drink ETOH?: No Does the pt have substance abuse?: Yes - Immunizations Immunizations are current?: Yes Immunizations: TDAP current <10years - POLST Patient has POLST: No PD ED PE NORMAL - Vitals Vital signs reviewed: Yes - General General: Alert and oriented X 3, No acute distress - Cardiac Cardiac: RRR - Respiratory Respiratory: No respiratory distress - Neuro Neuro: Alert and oriented X 3, No motor deficit, No sensory deficit - Psych Psych: Normal mood, Normal affect Results - Vitals Vitals: Vital Signs - 24 hr 06/20/23 12:42 Temperature 36.8 C Heart Rate 96 Respiratory 16 Rate Blood Pressure 140/84 H O2 Saturation 98 Oxygen O2 Source Room air PD Medical Decision Making - ED course ED course: Patient struggling with PCP access will refill 1 months worth of his sertraline. Will given resources for to find a new PCP in [place]. stable for outpt eval. Departure - Departure Disposition: Home, Self Care Clinical Impression: Medication refill Condition: Good Prescriptions: Sertraline [Zoloft] 100 mg PO BID #60 tablet Forms: PCP List
== END 2023-06-20 13:25 | disposition home or self-care (01) ==
LOC: ED 12:31
DX: Z76.0 Encounter for issue of repeat prescription (principal)
CPT/HCPCS: 99281; 99282